=== PATIENT | female | born 2000 | race Caucasian/White ===

== ENCOUNTER → 2019-12-23 | Outpatient (CLI) | payer OTHER ==
--- NOTE | 2019-12-29 07:09 | SLEEP ---
[address] [address] SLEEP STUDY REPORT Name: RADHADIAZ Hoda Room: [facility]#: [id number] Admission: 12/23/19 Attend Phys: Jamaal Dubon MD Discharge: Date of : 89 Report #: [id number] THIS REPORT FOR: //name// CC: Juvenal Dubon MD This study has been reviewed in its entirety by a board certified sleep specialist DATE OF SERVICE: 12/23/2019 SLEEP STUDY REFERRING PHYSICIAN: Jamaal Dubon MD. The patient is a 19-year-old who weighs 237 pounds with a BMI of 36. The patient's [place] score was 6. The patient underwent home sleep study performed at [facility]. Total recording time was 615 minutes. During the night study, the patient had 11 obstructive apneas, no central or mixed apneas and 11 hypopneas. The patient's AHI was only 2.2 per hour with a supine AHI of 3.2 per hour. Nocturnal oximetry study revealed an average oxygen saturation of 96% with the lowest of 89%. Mean heart rate 72 beats per minute with a maximum of 111 beats per minute. IMPRESSION: 1. No clinically significant sleep disordered breathing. The patient's AHI was only 1.1 per hour for the entire night. 2. No clinically significant nocturnal hypoxia. RECOMMENDATIONS: 1. The patient does not meet the criteria for CPAP initiation. 2. Weight loss is strongly advised. 3. Avoid ORGAN FIXER depressants. <ELECTRONICALLY SIGNED> By: Amos Estrada MD 12/29/19 [id number] Estrada MD /nt
== END ==
LOC: M.SLEEPLAB 08:30
DX: G47.30 Sleep apnea, unspecified (principal); R53.83 Other fatigue; R00.2 Palpitations